=== PATIENT | male | born 1955 | race Native Hawaiian/Other Pacific Islander ===

== ENCOUNTER 2017-04-30 09:28 | Outpatient (CLI) | payer BC ==
[~2017-04-30 09:28] MED LIST: FENT25DI TOP; HYDR-3182 PO; [UNRECOGNIZED DRUG - CODE] PO
== END 2017-04-30 10:30 | disposition home or self-care (01) ==
LOC: US 09:28
DX: R10.32 Left lower quadrant pain (principal)

== ENCOUNTER 2017-05-01 07:10 | Outpatient (CLI) | payer BC | END 2017-05-01 08:20 | disposition home or self-care (01) | LOC: CT 07:10 | DX: N28.89 Other specified disorders of kidney and ureter (principal) | CPT/HCPCS: 36415; 82565; 84520; Q9963 ==

== ENCOUNTER 2018-01-23 07:30 | Outpatient (CLI) | payer BC | END 2018-01-23 20:19 | disposition home or self-care (01) | LOC: CT 07:30 | DX: R10.32 Left lower quadrant pain (principal) | CPT/HCPCS: 36415; 82565; 84520; Q9963 ==

== ENCOUNTER 2022-07-09 10:07 | Outpatient (CLI) | payer OTHER | END 2022-07-09 20:21 | disposition home or self-care (01) | LOC: CT 10:07 | PROVIDERS: ATTEND Physician Assistant | DX: R51.9 Headache, unspecified (principal) ==

== ENCOUNTER 2022-09-27 08:59 | Outpatient (CLI) | payer OTHER | END 2022-09-27 19:01 | disposition home or self-care (01) | LOC: US 08:59 | PROVIDERS: ATTEND Physician Assistant | DX: I25.709 Atherosclerosis of coronary artery bypass graft(s), unspecified, with unspecified angina pectoris (principal) ==

== ENCOUNTER 2022-11-25 08:30 | Outpatient (CLI) | payer OTHER | END 2022-11-25 20:14 | disposition home or self-care (01) | LOC: MRI 08:30 | PROVIDERS: ATTEND Psychiatry & Neurology Neurology | DX: R51.9 Headache, unspecified (principal) | CPT/HCPCS: 36415; 82565; 84520; A9576 ==

== ENCOUNTER 2023-08-07 12:30 | Outpatient (CLI) | payer OTHER | END 2023-08-07 19:05 | disposition home or self-care (01) | LOC: MRI 12:30 | PROVIDERS: ATTEND Physician Assistant | DX: R41.0 Disorientation, unspecified (principal); R93.0 Abnormal findings on diagnostic imaging of skull and head, not elsewhere classified ==